=== PATIENT | male | born 2000 ===

== ENCOUNTER 2022-06-11 10:10 | Emergency (ER) | payer SELFPAY ==
[~2022-06-11] VITALS: Ht 180.3 cm; Wt 98.9 kg
[2022-06-11 10:11] VITALS: BP 154/94
== END 2022-06-11 13:58 | disposition left against medical advice (07) ==
LOC: M ED 10:10
DX: Z53.21 Procedure and treatment not carried out due to patient leaving prior to being seen by health care provider (principal)